=== PATIENT | female | born 1995 ===

== ENCOUNTER 2018-03-13 04:53 | Inpatient (IN) | payer MEDICAID, OTHER ==
[2018-03-13] MEDS ORDERED: PROMETHAZINE HCL 25 MG/ML VIAL ONE (09:00)
[2018-03-13] MEDS ORDERED: LACTATED RINGERS 1,000 ML IV.SOLN IV ONE ×2 (09:00)
[2018-03-13] MEDS ORDERED: LIDOCAINE HCL/PF 2% 100 MG/5 ML VIAL IJ ONE (09:00)
[2018-03-13] MEDS ORDERED: ROCURONIUM BROMIDE 10 MG/ML 5ML VIAL ONE (09:00)
[2018-03-13] MEDS ORDERED: KETOROLAC TROMETHAMINE 30 MG/1ML VIAL ONE (09:00)
[2018-03-13] MEDS ORDERED: fentaNYL CITRATE/PF 100 MCG/ 2ML AMP ONE (09:00)
[2018-03-13] MEDS ORDERED: Lidocaine 1% PF 30ml 10 MG/ML VIAL ONE (09:00)
[2018-03-13] MEDS ORDERED: SUGAMMADEX 200 mg/2mL 200 MG/2 ML VIAL IV ONE (09:00)
[2018-03-13] MEDS ORDERED: FAMOTIDINE/PF 20 MG/2 ML VIAL ONE (09:00)
[2018-03-13] MEDS ORDERED: ONDANSETRON HCL/PF 4 MG/ 2ML VIAL ONE ×2 (09:00)
[2018-03-13] MEDS ORDERED: NORMAL SALINE 1,000 ML IV.SOLN IV ONE (09:00)
[2018-03-13] MEDS ORDERED: SCOPOLAMINE HYDROBROMIDE 1.5MG/72HR PATCH TD ONE (09:00)
[2018-03-13] MEDS ORDERED: PROPOFOL 200 MG/20 ML VIAL IV ONE (09:00)
[2018-03-13] MEDS ORDERED: SUCCINYLCHOLINE CHLORIDE 20 MG/ML 10ML VIAL ONE (09:00)
[2018-03-13] MEDS ORDERED: BUPIVACAINE HCL 0.25%/EPI. PF 30 ML VIAL IJ ONE (09:00)
[2018-03-13] MEDS ORDERED: DEXAMETHASONE SOD PHOS 4 MG/ML VIAL ONE (09:00)
[2018-03-13] MEDS ORDERED: MORPHINE SULFATE 2 MG/ML PREFILLED SYR ONE (09:00)
[2018-03-13] MEDS ORDERED: ceFAZolin SODIUM 1 GM VIAL ONE (09:00)
--- NOTE | 2018-03-13 10:22 | History and Physical Report ---
History of Present Illnes - History of Present Illness Reason for Visit: Gastric sleeve post op History of Present Illness: Patient is a 22-year-old female who is status post lap. gastric sleeve. Patient has a history of morbid obesity with a BMI of 42.7. Patient has tried various weight loss program with minimal success. Patient was evaluated and was felt that she would benefit from gastric sleep procedure. Patient had done. Patient did not have any intraoperative complications. Patient is accompanied by spouse. She is drowsy but awakens easily- she is currently c/o nausea- inpatient orders placed. Explained to patient and spouse the importance of IS to prevent pneumonia, SCDs while in bed to prevent blood clots, and urinating in hat to monitor I & O's. Explained the severe importance of getting up and walking frequently to decrease pain, decrease risk of blood clots, and decrease resp. illnesses. - Past Medical History Cardiac: denies: AFIB, CHF, HTN Pulmonary: Previously intubated (surgical patient). 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 denies: Diabetes, Hyperthyroidism, Hypothyroidism Dermatology: denies: Cellulitis - Past Surgical History Past Surgical History: Cholecystectomy, Other (Nasal and toe surgery ) - Past Family History Father Family History: DM Mother Family History: Other (Obesity) - Past Social History Smoke: No Alcohol: None Drugs: None Lives: With Family Domestic Violence: Negative - Health Maintenance Health Maintenance: denies: Cholesterol Pneumonia Vaccine: No Resuscitation Status: Full code Review of Systems - Review of Systems Constitutional: negative: Fever, Chills Eyes: negative: pain ENT: negative: Ear Pain, Throat Pain Respiratory: negative: Cough, Shortness of Breath Cardiovascular: negative: Chest Pain, Edema Gastrointestinal: Nausea, Abdominal Pain (s/p surgical). negative: Vomiting Genitourinary: negative: Dysuria Musculoskeletal: Other (pt ambulated from OR to Room bed) Skin: Other (surgical dressings intact). negative: Rash Neurological: Other (still drowsy from pain medications) - Medications/Allergies Allergies/Adverse Reactions: Allergies Allergy/AdvReac Type Severity Reaction Status Date / Time oxycodone Allergy Verified 03/13/18 10:25 Home Medications: Home Medications Ibuprofen 800 mg PO TID PRN 03/13/18 Omeprazole 20 mg PO 0700 03/13/18 Exam - Exam General: Alert, Oriented to Person, Oriented to Place, Oriented to Time, Cooperative, Mild distress (nausea/soreness) HEENT: Atraumatic Neck: Normal Range of Motion Carotids: No bruits noted Lungs: Clear to auscultation, Normal air movement, Speaks full Sentences Cardiovascular: Regular rate, Normal S1, Normal S2 Peripheral Edema: Palpable pulses to radial and pedal Abdomen: Soft, Decreased Bowel Sounds Integumentary: [place], Warm, Dry Extremities: No cyanosis, No edema, Normal pulses, No tenderness/swelling Neurological: Strength Equal Bilat, Normal tone Psych/Mental Status: Mental status NL, Mood NL, Intact Judgment (post anethesia wearing off.) - Laboratory Results Laboratory Results: Laboratory Results 03/13/18 05:45 Urine HCG, Qual Negative Assessment/Plan - Assessment/Plan (1) Morbid obesity with BMI of 40.0-44.9, adult Status: Acute Current Visit: Yes (2) s/p gastric sleeve surgery Status: Acute Current Visit: Yes Assessment: Routine postoperative care orders have been entered. Patient was advised of the importance of doing incident spirometry as ordered. Patient was advised to make sure that she help the nurses with recording her urinary. Patient was encouraged to try to walk as soon as possible VTE Assessment - RISK FACTOR SCORE VTE RISK FACTOR SCORES: OBESITY, MAJOR SURGERY/ANESTHESIA TIME > 1 HOUR
[2018-03-13] MEDS ORDERED: MORPHINE SULFATE 4 MG/ML PREFILLED SYR IVP PRN (10:31)
[2018-03-13] MEDS ORDERED: LEVALBUTEROL HCL 1.25 MG/3 ML AMPUL.NEB NEB PRN (10:51)
[2018-03-13] MEDS ORDERED: diphenhydrAMINE HCL 50 MG/ML VIAL IVP PRN (10:51)
[2018-03-13] MEDS: ONDANSETRON HCL/PF 4 MG/ 2ML VIAL IVP PRN ×2 (11:29→17:54)
[2018-03-13] MEDS: 0.9 % SODIUM CHLORIDE 1,000 ML IV SCH ×2 (12:37→20:10)
[2018-03-13] MEDS: KETOROLAC TROMETHAMINE 30 MG/1ML VIAL IVP PRN (13:07)
[2018-03-13 13:48] VITALS: BMI 42.6
[2018-03-13] MEDS ORDERED: CLINDAMYCIN PHOSPHATE 300 MG/2 ML VIAL ONE (14:49)
[2018-03-13] MEDS: CLINDAMYCIN PHOSPHATE 600 MG in 0.9 % SODIUM CHLORIDE 100 ML IV SCH ×2 (16:57→23:12)
[2018-03-13] MEDS ORDERED: MORPHINE SULFATE 2 MG/ML PREFILLED SYR IVP PRN (19:58)
[2018-03-13] MEDS: FAMOTIDINE/PF 20 MG/2 ML VIAL IVP SCH (20:18)
[2018-03-13] MEDS ORDERED: 0.9 % SODIUM CHLORIDE 50 ML IV ONE ×2 (20:21→23:03)
[2018-03-14] MEDS: ONDANSETRON HCL/PF 4 MG/ 2ML VIAL IVP PRN ×3 (01:30→09:21)
[2018-03-14] MEDS: 0.9 % SODIUM CHLORIDE 1,000 ML IV SCH (04:22)
--- NOTE | 2018-03-14 08:33 | Inpatient Progress Note ---
Subjective - Required Recertification Statement I anticipate X number of days because-include discharge plan: 1 day - Review of Systems Subjective: Post Op Day #1 Patient stated she is been having some nausea with some intermittent dry heat. Patient states that the Zofran does not seem to be working real well for her. There is been some concern about getting Phenergan because of sedation. Patient states she has been up walking. Patient has been passing flatus. Patient states she had been urinating on a regular basis. Patient pain seemed to be fairly well controlled at this time. Patient has been able to tolerated some oral intake. General: Denies: Chills HEENT: Denies: Head Aches Pulmonary: Denies: Dyspnea, Cough, Pleuritic Chest Pain Cardiovascular: Denies: Chest Pain Gastrointestinal: Nausea, Abdominal Pain. Denies: Vomiting, Diarrhea, Constipation, Melena, Hematochezia Genitourinary: Denies: Dysuria, Frequency Objective - Exam Vitals and I&O: Vital Signs Temp 99.4 F 03/14/18 05:52 Pulse 88 03/14/18 05:52 Resp 18 03/14/18 05:52 BP 120/52 03/14/18 05:52 Pulse Ox 99 03/14/18 05:52 Intake & Output 03/13/18 03/13/18 03/14/18 11:59 23:59 11:59 Intake Total 810 1020 Output Total 950 70 Balance -140 950 Weight 127.27 kg Intake: IV 600 750 Left Forearm 600 750 Oral 210 270 Output: Urine 950 Emesis 70 Other: Voiding Method Toilet Toilet # Voids 1 1 General: Alert, Oriented to Person, Oriented to Place, Oriented to Time, Cooperative Neck: Supple Lungs: Clear to auscultation, Normal air movement, Speaks full Sentences. No: Respiratory Distress, Wheezes, Rales Cardiovascular: Regular rate, Normal S1, Normal S2, No murmurs Abdomen: Other (tenderness in upper quadrnt area), Decreased Bowel Sounds. No: Distended Skin: [place], Warm, Dry, Rash Psych/Mental Status: Mental status NL, Mood NL, Appropriate Affect - Results Results: Laboratory Results Urine HCG, Qual Negative (NEGATIVE) 03/13/18 05:45 Assessment/Plan - Assessment/Plan (1) Morbid obesity with BMI of 40.0-44.9, adult Status: Acute Current Visit: Yes Assessment: Will continue with post operative care as ordered. (2) s/p gastric sleeve surgery Status: Acute Current Visit: Yes Assessment: Patient is ambulating, tolerating oral intake fairly well. Pain seems to be manageably at this time.
[2018-03-14] MEDS: KETOROLAC TROMETHAMINE 30 MG/1ML VIAL IVP PRN ×2 (09:19→20:52)
[2018-03-14] MEDS ORDERED: PROMETHAZINE HCL 25 MG in 0.9 % SODIUM CHLORIDE 50 ML IV PRN (09:26)
[2018-03-14] MEDS: FAMOTIDINE/PF 20 MG/2 ML VIAL IVP SCH ×2 (09:28→21:06)
[2018-03-14] MEDS ORDERED: ENOXAPARIN SODIUM 40 MG/0.4 ML DISP.SYRIN SQ SCH (11:00)
[2018-03-14] MEDS ORDERED: 0.9 % SODIUM CHLORIDE 50 ML IV ONE (20:15)
[2018-03-15] MEDS: KETOROLAC TROMETHAMINE 30 MG/1ML VIAL IVP PRN (05:42)
[2018-03-15 06:23] VITALS: BP 121/57
[2018-03-15] MEDS ORDERED: 0.9 % SODIUM CHLORIDE 50 ML IV ONE (07:46)
[2018-03-15] MEDS: FAMOTIDINE/PF 20 MG/2 ML VIAL IVP SCH (08:18)
--- NOTE | 2018-03-15 15:21 | Discharge Summary ---
Discharge Summary - Discharge Sumary History of Present Illness: Patient is a 22-year-old female who is status post lap. gastric sleeve. Patient has a history of morbid obesity with a BMI of 42.7. Patient has tried various weight loss program with minimal success. Patient was evaluated and was felt that she would benefit from gastric sleep procedure. Patient had done. Patient did not have any intraoperative complications. Patient is accompanied by spouse. She is drowsy but awakens easily- she is currently c/o nausea- inpatient orders placed. Explained to patient and spouse the importance of IS to prevent pneumonia, SCDs while in bed to prevent blood clots, and urinating in hat to monitor I & O's. Explained the severe importance of getting up and walking frequently to decrease pain, decrease risk of blood clots, and decrease resp. illnesses. Condition at Discharge: Stable Home Medications: Ambulatory Orders Medication Instructions Recorded Omeprazole 20 mg PO 0700 03/13/18 Metoclopramide HCl [Reglan] 10 mg PO QID PRN #20 tablet 03/15/18 Promethazine HCl [Phenergan] 12.5 mg PO Q6 PRN #240 ml 03/15/18 Consultations this Visit: Other (surgical) Procedures this Visit: Other (Gastric Sleeve) Allergies/Adverse Reactions: Allergies Allergy/AdvReac Type Severity Reaction Status Date / Time oxycodone Allergy Verified 03/13/18 10:25 Discharge Summary: On the day of admission patient was taken to the operating room where a laproscopic gastric sleeve procedure was performed. Patient tolerated procedure well and did not have any intraoperative complications. Patient was placed on a clear liquid diet for 24 hours in advance to a full liquid diet. Patient did have some nausea during the first 24 hours which was treated with ondansteron on and promethazine. Patient was encouraged to use incentive spirometry several times an hour while awake. Patient urinary output remain stable. Patient blood pressure remained stable. At the time of dismissal patient was having some flatus, was tolerating her diet, and was ambulating well. Patient was subsequently discharged in stable condition. - Final Diagnosis (1) Morbid obesity with BMI of 40.0-44.9, adult Problems: stable (2) s/p gastric sleeve surgery Problems:
== END 2018-03-15 09:00 | disposition home or self-care (01) | DRG 641 ==
LOC: OPSURG 04:53 → SOUTH 10:09
PROVIDERS: ADMIT Family Medicine; ATTEND Family Medicine
DX: E66.01 Morbid (severe) obesity due to excess calories (principal); Z98.84 Bariatric surgery status
CPT/HCPCS: 81025; 99222; 99231; 99232; 99238; J0330; J0690; J1100; J1650; J1885; J2001; J2270; J2405; J2550; J2704; J3010; J3490; S0028; 43775; A9270-GY; J7030; J7120; S1016

== ENCOUNTER 2018-03-13 04:55 | Day surgery (SDC) | payer MEDICAID, OTHER ==
[2018-03-13] MEDS ORDERED: Lidocaine 1% PF 30ml 10 MG/ML VIAL ONE (08:48)
[2018-03-13] MEDS ORDERED: LIDOCAINE HCL/PF 2% 100 MG/5 ML VIAL IJ ONE (08:48)
[2018-03-13] MEDS ORDERED: DEXAMETHASONE SOD PHOS 4 MG/ML VIAL ONE (08:48)
[2018-03-13] MEDS ORDERED: PROMETHAZINE HCL 25 MG/ML VIAL ONE (08:48)
[2018-03-13] MEDS ORDERED: BUPIVACAINE HCL 0.25%/EPI. PF 30 ML VIAL IJ ONE (08:48)
[2018-03-13] MEDS ORDERED: SUGAMMADEX 200 mg/2mL 200 MG/2 ML VIAL IV ONE (08:48)
[2018-03-13] MEDS ORDERED: ONDANSETRON HCL/PF 4 MG/ 2ML VIAL ONE ×2 (08:48)
[2018-03-13] MEDS ORDERED: LACTATED RINGERS 1,000 ML IV.SOLN IV ONE ×2 (08:48)
[2018-03-13] MEDS ORDERED: NORMAL SALINE 1,000 ML IV.SOLN IV ONE (08:48)
[2018-03-13] MEDS ORDERED: fentaNYL CITRATE/PF 100 MCG/ 2ML AMP ONE (08:48)
[2018-03-13] MEDS ORDERED: FAMOTIDINE/PF 20 MG/2 ML VIAL ONE (08:48)
[2018-03-13] MEDS ORDERED: MORPHINE SULFATE 2 MG/ML PREFILLED SYR ONE (08:48)
[2018-03-13] MEDS ORDERED: ROCURONIUM BROMIDE 10 MG/ML 5ML VIAL ONE (08:48)
[2018-03-13] MEDS ORDERED: PROPOFOL 200 MG/20 ML VIAL IV ONE (08:48)
[2018-03-13] MEDS ORDERED: SUCCINYLCHOLINE CHLORIDE 20 MG/ML 10ML VIAL ONE (08:48)
[2018-03-13] MEDS ORDERED: CLINDAMYCIN PHOSPHATE 900 MG/6 ML VIAL ONE (08:48)
[2018-03-13] MEDS ORDERED: SCOPOLAMINE HYDROBROMIDE 1.5MG/72HR PATCH TD ONE (08:48)
== END 2018-03-13 10:05 ==
LOC: OUT 04:55
PROVIDERS: ATTEND Surgery
DX: E66.01 Morbid (severe) obesity due to excess calories (principal); Z68.42 Body mass index [BMI] 45.0-49.9, adult
CPT/HCPCS: 43235; 43775; A9270; J0330; J1100; J2001; J2270; J2405; J2550; J2704; J3010; J7030; J7120; S0028